=== PATIENT | male | born 1995 | race African-American/Black ===

== ENCOUNTER 2018-01-05 22:12 | Emergency (ER) | payer OTHER ==
[2018-01-06 00:40] LABS: CHLAMYDIA DNA AMPLIFICATION POSITIVE (NEGATIVE); GC DNA AMPLIFICATION NEGATIVE (NEGATIVE)
[2018-01-06] MEDS: AZITHROMYCIN 250 MG TAB PO (01:38)
== END 2018-01-06 01:45 | disposition home or self-care (01) ==
LOC: M ED 22:12
DX: A74.9 Chlamydial infection, unspecified (principal)
CPT/HCPCS: 87591

== ENCOUNTER 2018-04-06 19:48 | Emergency (ER) | payer OTHER ==
[2018-04-06] MEDS: NAPROXEN 250 MG TAB PO (20:34)
== END 2018-04-06 20:40 | disposition home or self-care (01) ==
LOC: M ED 19:48
DX: G62.9 Polyneuropathy, unspecified (principal); T69.1XXA Chilblains, initial encounter; X58.XXXA Exposure to other specified factors, initial encounter; Y92.89 Other specified places as the place of occurrence of the external cause
CPT/HCPCS: 99282

== ENCOUNTER 2019-06-13 08:01 | Emergency (ER) | payer OTHER ==
[~2019-06-13] VITALS: Ht 170.2 cm; Wt 100.8 kg
[~2019-06-13 08:01] MED LIST: NAPR-837 PO
[2019-06-13 08:48] LABS: INFLUENZA A AMPLIFICATION NEGATIVE (NEGATIVE); INFLUENZA B AMPLIFICATION POSITIVE (NEGATIVE)
[2019-06-13] MEDS ORDERED: ACETAMINOPHEN 500 MG TAB PO ONE (09:00)
[2019-06-13] MEDS ORDERED: OSEL75CA PO (09:07)
[2019-06-13] MEDS ORDERED: OSELTAMIVIR PHOSPHATE 75 MG CAP (TAMIFLU) PO ONE (09:15)
[2019-06-13 09:30] VITALS: BP 120/71
== END 2019-06-13 09:37 | disposition home or self-care (01) ==
LOC: M ED 08:01
DX: J10.1 Influenza due to other identified influenza virus with other respiratory manifestations (principal)

== ENCOUNTER 2020-02-16 10:40 | Emergency (ER) | payer OTHER ==
[~2020-02-16] VITALS: Ht 170.2 cm; Wt 109.8 kg
[~2020-02-16 10:40] MED LIST changes: +OSEL75CA PO
--- NOTE | 2020-02-16 11:19 | REP ---
INDICATION: CHEST PAIN COMPARISON: None. TECHNIQUE: Portable AP view of the chest FINDINGS: The mediastinum and cardiac silhouette are stable and within normal limits for portable technique. The lung trejo are clear without acute consolidation, effusion, or pneumothorax. Skeletal structures are intact. IMPRESSION: No acute cardiopulmonary process appreciated. <Electronically signed by Liam Gaona > 02/16/20 1117
[2020-02-16 11:39] LABS: EOS # 0.1 10^3/uL (0.0-0.5); EOS % 2.7 % (0.0-3.0); HEMATOCRIT 51.1 % (42.0-52.0); HEMOGLOBIN 15.8 g/dl (13.5-17.5); LYMPH # 1.2 10^3/uL (1.5-5.0); LYMPH % 29.3 % (24.0-44.0); MEAN CORPUSCULAR HGB CONC 30.9 g/dl (32.0-36.5); MEAN CORPUSCULAR VOLUME 80.7 fl (80.0-96.0); MONO # 0.4 10^3/uL (0.0-0.8); NEUTROPHILS # 2.3 10^3/uL (1.5-8.5); NEUTROPHILS % 56.8 % (36.0-66.0); PLATELET COUNT, AUTOMATED 297 10^3/uL (150-450); RED BLOOD COUNT 6.33 10^6/uL (4.30-6.10); WHITE BLOOD COUNT 4.1 10^3/uL (4.0-10.0)
[2020-02-16] MEDS ORDERED: KETOROLAC 30 MG/ML 1ML VIAL IV ONE (12:00)
[2020-02-16] MEDS ORDERED: KETOROLAC 30 MG/ML 1ML VIAL As Ordered ONE (12:04)
[2020-02-16 12:14] LABS: ALBUMIN 4.2 GM/DL (3.2-5.2); BILIRUBIN,DIRECT 0.1 MG/DL (0.0-0.2); BILIRUBIN,TOTAL 0.4 MG/DL (0.2-1.0); FREE T4 1.05 NG/DL (0.76-1.46); THYROID STIMULATING HORMONE 0.615 uIU/ML (0.358-3.740); TOTAL PROTEIN 8.5 GM/DL (6.4-8.2)
[2020-02-16] MEDS ORDERED: NAPR-885 PO (12:51)
[2020-02-16] MEDS ORDERED: FAMO1TAB26 PO (12:51)
[2020-02-16] MEDS ORDERED: CYCL5TAB PO (12:51)
[2020-02-16 12:55] VITALS: BP 131/68
--- NOTE | 2020-02-18 08:59 | ECGEPIP ---
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
== END 2020-02-16 13:22 | disposition home or self-care (01) ==
LOC: M ED 10:40
DX: R07.89 Other chest pain (principal); R06.00 Dyspnea, unspecified; Z79.899 Other long term (current) drug therapy
CPT/HCPCS: 36415; 71045; 80047; 80076; 83605; 83690; 83880; 84439; 84443; 85025; 85379; 93005; 93041; 94760; 96374; 99285; J1885

== ENCOUNTER 2022-08-16 17:27 | Emergency (ER) | payer OTHER ==
[~2022-08-16] VITALS: Ht 167.6 cm; Wt 106.4 kg
[~2022-08-16 17:27] MED LIST changes: +CYCL5TAB PO; +FAMO10TA52 PO; +NAPR-885 PO
[2022-08-16 17:28] VITALS: BP 134/80
[2022-08-16] MEDS ORDERED: KETOROLAC 60MG 2ML VIAL IM ONE (18:15)
[2022-08-16] MEDS ORDERED: LIDOCAINE 5% (LIDODERM) PATCH TD ONE (18:15)
[2022-08-16 18:34] LABS: BASO # 0.1 10^3/uL (0.0-0.2); BASO % 0.9 % (0.0-1.0); EOS # 0.1 10^3/uL (0.0-0.5); EOS % 1.4 % (0.0-3.0); HEMATOCRIT 47.8 % (42.0-52.0); HEMOGLOBIN 15.1 g/dl (13.5-17.5); LYMPH # 2.3 10^3/uL (1.5-5.0); LYMPH % 40.3 % (24.0-44.0); MEAN CORPUSCULAR HEMOGLOBIN 25.4 pg (27.0-33.0); MEAN CORPUSCULAR HGB CONC 31.6 g/dl (32.0-36.5); MEAN CORPUSCULAR VOLUME 80.5 fl (80.0-96.0); MONO # 0.5 10^3/uL (0.0-0.8); MONO % 8.9 % (2.0-8.0); NEUTROPHILS # 2.8 10^3/uL (1.5-8.5); NEUTROPHILS % 48.3 % (36.0-66.0); PLATELET COUNT, AUTOMATED 344 10^3/uL (150-450); RED BLOOD COUNT 5.94 10^6/uL (4.30-6.10); WHITE BLOOD COUNT 5.8 10^3/uL (4.0-10.0)
[2022-08-16 18:57] LABS: BLOOD UREA NITROGEN 16 MG/DL (9-23); CALCIUM LEVEL 9.1 MG/DL (8.5-10.1); CARBON DIOXIDE LEVEL 27 MMOL/L (20-31); CHLORIDE LEVEL 102 MMOL/L (98-107); CREATININE FOR GFR 0.89 MG/DL (0.70-1.30); GLOMERULAR FILTRATION RATE > 60.0 (>60); GLUCOSE, FASTING 81 MG/DL (60-100); POTASSIUM SERUM 4.3 MMOL/L (3.5-5.1); SODIUM LEVEL 136 MMOL/L (136-145)
[2022-08-16] MEDS ORDERED: ASPE4PAD TOP (19:49)
[2022-08-16] MEDS ORDERED: METH-1165 PO (19:49)
[2022-08-16] MEDS ORDERED: NAPR-837 PO (19:49)
[2022-08-16] MEDS ORDERED: methocarbamoL 750 MG TAB PO ONE (19:55)
== END 2022-08-16 20:00 | disposition home or self-care (01) ==
LOC: M ED 17:27
DX: M54.50 Low back pain, unspecified (principal); Z79.899 Other long term (current) drug therapy
CPT/HCPCS: 80048; 81001; 85025; 96372; 99282; J1885